=== PATIENT | female | born 1960 | race Caucasian/White ===

== ENCOUNTER 2024-08-13 12:27 | Outpatient (CLI) | payer MEDICARE, MEDICAID ==
[~2024-08-13 12:27] MED LIST: AZIT250T PO
== END 2024-08-13 23:59 | disposition home or self-care (01) ==
LOC: RAD 12:27
PROVIDERS: ATTEND Nurse Practitioner
DX: J43.9 Emphysema, unspecified (principal); J21.9 Acute bronchiolitis, unspecified
CPT/HCPCS: 71250